=== PATIENT | male | born 1950 | race Caucasian/White ===

== ENCOUNTER 2017-01-06 06:47 | Day surgery (SDC) | payer MEDICARE ==
[~2017-01-06] VITALS: Ht 172.7 cm; Wt 83.6 kg
[2017-01-06] MEDS ORDERED: SODIUM CHLORIDE 0.9% 1000 ML IV SCH (07:00)
[2017-01-06] MEDS ORDERED: TAMS0.4C4 PO (07:07)
[2017-01-06] MEDS ORDERED: CALC500T37 PO (07:07)
[2017-01-06] MEDS ORDERED: ASPI81CH37 CHEW (07:07)
[2017-01-06] MEDS ORDERED: FISHCAP4 PO (07:07)
[2017-01-06] MEDS ORDERED: DENO120P SQ (07:07)
[2017-01-06] MEDS ORDERED: VITA100036 PO (07:07)
[2017-01-06] MEDS ORDERED: LEUP1INJ8 SQ (07:07)
[2017-01-06] MEDS ORDERED: ATOR40TA16 PO (07:07)
[2017-01-06] MEDS ORDERED: MULT1TAB PO (07:07)
[2017-01-06] MEDS ORDERED: AMLO10TA2 PO (07:07)
[2017-01-06] MEDS ORDERED: VANCOMYCIN 1000 MG/NS 250 ML - implanted port/tunneled catheter IV SCH ×2 (07:30)
[2017-01-06] MEDS ORDERED: ceFAZolin 2 GM PREMIX 50 ML - implanted port/tunneled catheter insertion IV SCH (07:30)
[2017-01-06 07:50] LABS: APTT (PATIENT) 26.6 SEC (24.3-30.1); INTERNATIONAL NORMALIZED RATIO 0.9 RATIO; PROTHROMBIN TIME - PATIENT 10.1 SEC (9.8-11.6)
[2017-01-06] MEDS ORDERED: fentaNYL CITRATE 250 MCG/5 ML AMP ONE (08:03)
[2017-01-06] MEDS ORDERED: MIDAZOLAM HCL 5 MG/5 ML VIAL ONE (08:03)
[2017-01-06] MEDS ORDERED: LIDOCAINE 1%/EPINEPHrine 1:100,000 SOLN 20 ML VIAL ONE (08:22)
--- NOTE | 2017-01-06 09:19 | PD.RAD ---
Post Procedure Progress Note Pre Procedure Diagnosis: (1) Prostate cancer Post Procedure Diagnosis: (1) Prostate cancer Procedure Date: Jan 06, 2017 Supervising Radiologist: Cooper Ruiz JR Proceduralist/Assist: Danay Boykin, RT(R), Amara Coates RT(R)() Anesthesia: Conscious Sedation Plan of Activity Patient to Unit: ROPU Patient Condition: Good See PACS Report for procedural detail/treatment Central Venous Access Device Procedure 1 Right Internal Jugular Hemodialysis Catheter Tunneled Placement dual lumen [place]: 15 Findings: Permcath in good position. OK to use. Plan Remove sutures in 2-3 weeks. Jr. Joseph,Cooper Finch MD Jan 06, 2017 09:19
[2017-01-06 09:30] VITALS: BP 104/72; PULSE 56; RESP 16; O2SAT 93
[2017-01-06] MEDS ORDERED: HEPARIN SODIUM - IV 2,000 UNITS/2 ML VIAL IV FLUSH PRN (09:30)
[2017-01-06] MEDS ORDERED: SODIUM CHLORIDE 0.9% FLUSH 10 ML FLUSH IVF PRN (09:30)
[2017-01-06 09:47] VITALS: BP 103/67; PULSE 63; RESP 16; TEMP 98.1; O2SAT 98
--- NOTE | 2017-01-06 09:55 | RADRPT ---
EXAM DATE/TIME: 01/06/2017 08:28 This report includes an Addendum and supersedes previous reports for this exam. [facility] COMPARISON: No previous studies available for comparison. 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 Vancomycin within 2 hours of procedure, Ancef (or alternative) within 1 hour of procedure. DEVICE: 1. 15 [place] single lumen 19 cm [place] II Plus catheter PROCEDURE : 1. Ultrasound-guided venipuncture. 2. PermaCath placement. 3. Conscious sedation with continuous EKG and oximetry monitoring. The risks, benefits and alternatives to the procedure were explained and verbal and written consent w as obtained. The site was prepped in sterile fashion. Full sterile technique was used, including ca p, mask, sterile gloves and gown and a large sterile sheet. Hand hygiene and 2% chlorhexidine and/or betadine/alcohol prep was utilized per protocol for cutaneous antisepsis. The skin and subcutaneous tissues were infiltrated with local anesthetic solution. With ultrasound and fluoroscopic guidance a dermatotomy was created over the prescribed vein. A micr opuncture set was used to access the targeted vein and serial dilatation was performed to accept the prescribed length catheter. A subcutaneous tunnel was created in a retrograde fashion the catheter w as pulled through the tunnel. The catheter was flushed and assembled and locked with heparin. The c atheter was sutured in place. Conscious sedation was performed with the prescribed dosages and duration as above in the presence of an independent trained radiology nurse to assist in the monitoring of the patient. EKG and oximetry remained stable throughout the procedure. The patient tolerated the procedure well and there were n o complications. The patient was sent to post anesthesia recovery in stable condition. CONCLUSION: Uncomplicated PermaCath placement as above. Cooper Ruiz Jr., MD on January 06, 2017 at 9:53 Board Certified Radiologist. This report was verified electronically. ADDENDUM: There is a correction under the device listed. The device utilized is a 15 [place] 19 cm dual lumen [place] II plus catheter. Cooper Ruiz Jr., MD on January 06, 2017 at 15:05 Board Certified Radiologist. This report was verified electronically.
[2017-01-06 10:30] VITALS: BP 102/66; PULSE 55; RESP 16; O2SAT 94
[2017-01-06 11:08] VITALS: BP 104/64; PULSE 54; RESP 16; O2SAT 94
== END 2017-01-06 11:34 | disposition home or self-care (01) ==
LOC: HROP 06:47 → HRIP 06:51 → HROP 11:34
PROVIDERS: ATTEND Urology
DX: C61 Malignant neoplasm of prostate (principal); I10 Essential (primary) hypertension; E78.5 Hyperlipidemia, unspecified; J44.9 Chronic obstructive pulmonary disease, unspecified
CPT/HCPCS: 36558; 76937; 77001; 85610; 85730; 99152; 99153; C1750; C1769; J0690; J1644; J2250; J3010; J3370; J7030; J7050

== ENCOUNTER 2017-01-27 12:51 | Day surgery (SDC) | payer MEDICARE ==
[~2017-01-27 12:51] MED LIST: AMLO10TA2 PO; ASPI81CH37 CHEW; ATOR40TA16 PO; CALC500T37 PO; DENO120P SQ; FISHCAP4 PO; LEUP1INJ8 SQ; MULT1TAB PO; TAMS0.4C4 PO; VITA100036 PO
[2017-01-27 13:12] VITALS: BP 142/82; PULSE 74; RESP 18; TEMP 97.9; O2SAT 98
[2017-01-27] MEDS ORDERED: LIDOCAINE 1%/EPINEPHrine 1:100,000 SOLN 20 ML VIAL ONE (14:34)
[2017-01-27 15:00] VITALS: BP 140/85; PULSE 63; RESP 18; O2SAT 98
--- NOTE | 2017-01-27 16:43 | RADRPT ---
EXAM DATE/TIME: 01/27/2017 00:00 [facility] COMPARISON: No previous studies available for comparison. INDICATIONS : Patient presents with a history of prostate cancer in need of dialysis catheter removal due to plasm apheresis treatment exchange completion. MEDICAL HISTORY : Hx prostate cancer COPD HLD SURGICAL HISTORY : Prostate needle biopsy Colonoscopy Brachytherapy ENCOUNTER: Subsequent ACUITY: 2 weeks PAIN SCORE: 0/10 LOCATION: N/A IMAGE SERIES: 0 TECH NOTE: Dialysis catheter removed without fluoroscopy.ALCIRA PIPER MR#:[id number] Exam Dt/Desc: January 27, 2017CENTRAL VENOUS CATHETER REMOVAL, TUNNELED RIGHT PROCEDURE : 1. PermaCath removal. The risks, benefits and alternatives to the procedure were explained and verbal and written consent w as obtained. The site was prepped in sterile fashion. Full sterile technique was used, including ca p, mask, sterile gloves and gown and a large sterile sheet. Hand hygiene and 2% chlorhexidine and/or betadine/alcohol prep was utilized per protocol for cutaneous antisepsis. The skin and subcutaneous tissues were infiltrated with local anesthetic solution. The tract was anesthetized with 1% Lidocaine using. The Permcath was dissected from the subcutaneous tissues and easily removed in one piece. Manual pressure was applied to the venotomy site until hem ostasis was obtained. Sterile dressing was applied. The patient tolerated the procedure well and there were no complications. CONCLUSION: Uncomplicated Permcath removal. Curtis Morales MD on January 27, 2017 at 16:41 Board Certified Radiologist. This report was verified electronically.
== END 2017-01-27 15:15 | disposition home or self-care (01) ==
LOC: HROP 12:51 → HRIP 12:52 → HROP 15:15
PROVIDERS: ATTEND Urology
DX: Z45.2 Encounter for adjustment and management of vascular access device (principal); J44.9 Chronic obstructive pulmonary disease, unspecified; E78.5 Hyperlipidemia, unspecified; Z85.46 Personal history of malignant neoplasm of prostate; Z79.82 Long term (current) use of aspirin; Z79.899 Other long term (current) drug therapy
CPT/HCPCS: 36589; 77001

== ENCOUNTER 2017-10-26 22:15 | Emergency (ER) | payer MEDICARE ==
[~2017-10-26] VITALS: Ht 172.7 cm; Wt 82.4 kg
[~2017-10-26 22:15] MED LIST changes: -ASPI81CH37 CHEW; +ASPI81CH6 CHEW; +CHOL10008 PO; -VITA100036 PO
[2017-10-26 22:20] VITALS: BP 154/98; PULSE 92; RESP 18; TEMP 99; O2SAT 100
--- NOTE | 2017-10-26 23:19 | RADRPT ---
EXAM DATE/TIME: 10/26/2017 22:39 [facility] COMPARISON: No previous studies available for comparison. INDICATIONS : Dysuria. ORAL CONTRAST: No oral contrast ingested. RADIATION DOSE: 9.63 CTDIvol (mGy) MEDICAL HISTORY : Hypertension. Chronic obstructive pulmonary disease. Carcinoma, prostate.Hiatal hernia, rectal mass SURGICAL HISTORY : Colostomy. ENCOUNTER: Initial ACUITY: 1 day PAIN SCALE: 10/10 LOCATION: abdomen TECHNIQUE: Volumetric scanning of the abdomen and pelvis was performed. Using automated exposure control and ad justment of the mA and/or kV according to patient size, radiation dose was kept as low as reasonably achievable to obtain optimal diagnostic quality images. DICOM format image data is available electro nically for review and comparison. FINDINGS: LOWER LUNGS: The visualized lower lungs are clear. LIVER: Homogeneous density without lesion. There is no dilation of the biliary tree. No calcified gallston es. SPLEEN: Normal size without lesion. PANCREAS: Within normal limits. KIDNEYS: Normal in size and shape. There is no mass, stone, or hydronephrosis on the left. Punctate nonobstru cting calculus upper pole right kidney measures 2 mm. There is mild prominence right collecting syste m. No distal ureteral calculus. ADRENAL GLANDS: Within normal limits. VASCULAR: There is no aortic aneurysm. BOWEL/MESENTERY: Left lower quadrant colostomy with stomal hernia. No signs of strangulation or obstruction. Diverticu losis of the colon. There is no free intraperitoneal air or fluid. ABDOMINAL WALL: Within normal limits. RETROPERITONEUM: Prominent retroperitoneal adenopathy largest distal bifurcation measuring 2.5 x 1.8 cm and the left.. BLADDER: No wall thickening or mass. There is hyperdensity/debris within the bladder posteriorly could be jose tony or other abnormality. REPRODUCTIVE: Within normal limits. INGUINAL: There is no lymphadenopathy or hernia. MUSCULOSKELETAL: Within normal limits for patient age. CONCLUSION: 1. Debris/hyperdensity within the bladder could be hematoma or other abnormality. Urinalysis recommen ded. 2. Mild prominence of the right collecting system but no distal ureteral calculus. 3. Retroperitoneal lymphadenopathy. 4. Diverticulosis of the colon. 5. Left lower quadrant colostomy stomal hernia. Gio Villanueva MD on October 26, 2017 at 23:14 Board Certified Radiologist. This report was verified electronically.
[2017-10-26 23:20] VITALS: BP 143/82; PULSE 70; RESP 18; O2SAT 100
[2017-10-26 23:25] VITALS: RESP 20; O2SAT 100
--- NOTE | 2017-10-26 23:28 | PD ---
HPI Chief Complaint: Bloody urine Time Seen by Provider: 23:21 Travel History International Travel<30 days: No Contact w/Intl Traveler<30days: No Traveled to known affect area: No History of Present Illness HPI Patient comes in complaining of suprapubic pain, sharp, 9 out of 10, relieved slightly by urination. However his urination has decreased tremendously since he started noticing large blood clots through his urine stream. Patient states that he had a recent cystoscopy in which Dr. Colvin discovered a bladder mass which was causing his hematuria. No known drug allergy Past medical history significant for hypertension COPD hiatal hernia and most recently a bladder CA, he is expected to have bladder mass removal on November 16 of this year by Dr. COLVIN [facility] Past Medical History Cancer: Yes (PROSTATE, RECENT BX RECTAL MASS) Cardiovascular Problems: No Diabetes: No Endocrine: No Genitourinary: Yes (DYSURIA) Hepatitis: No Hiatal Hernia: Yes Immune Disorder: No Musculoskeletal: No Neurologic: No Psychiatric: Yes (DEPRESSION) Reproductive: No Respiratory: Yes (COPD) Thyroid Disease: No Past Surgical History Abdominal Surgery: No AICD: No Cardiac Surgery: No Ear Surgery: No Endocrine Surgery: No Eye Surgery: No Genitourinary Surgery: No Gynecologic Surgery: No Joint Replacement: No Oral Surgery: No Pacemaker: No Thoracic Surgery: No Social History Substance Use: No Allergies-Medications (Allergen,Severity, Reaction): Coded Allergies: No Known Allergies (Verified Adverse Reaction, Unknown, 10/27/17) Reported Meds & Prescriptions Reported Meds & Active Scripts Active Reported Xgeva Inj (Denosumab) 120 Mg/1.7 Ml Inj 70 Mg SQ Q28D Eligard Inj Kit (Leuprolide Acetate) 7.5 Mg Kit 7.5 Mg SQ Q30D Centrum Silver Adult 50+ (Multiple Vitamins W/ Minerals) 1 Tab Tab 1 Tab PO DAILY Vitamin D3 (Cholecalciferol) 1,000 Unit Cap 4,000 Units PO DAILY Fish Oil + D3 (Fish Oil-Cholecalciferol) 1,200-1,000 Mg-Unit Cap 1 Cap PO DAILY Calcium Ascorbate 500 Mg Tab 500 Mg PO DAILY Aspirin Low Dose (Aspirin) 81 Mg Chew 81 Mg CHEW DAILY Tamsulosin (Tamsulosin HCl) 0.4 Mg Cap 0.4 Mg PO HS Atorvastatin (Atorvastatin Calcium) 40 Mg Tab 40 Mg PO HS Amlodipine (Amlodipine Besylate) 10 Mg Tab 10 Mg PO DAILY Review of Systems General / Constitutional: No: Fever Eyes: No: Visual changes HENT: No: Headaches Cardiovascular: No: Chest Pain or Discomfort Respiratory: No: Shortness of Breath Gastrointestinal: Positive: Abdominal Pain (Suprapubic pain) Genitourinary: Positive: Hematuria Musculoskeletal: No: Pain Skin: No Rash Neurologic: No: Weakness Psychiatric: No: Depression Endocrine: No: Polydipsia Hematologic/Lymphatic: No: Easy Bruising Physical Exam Narrative GENERAL: SKIN: Warm and dry. HEAD: Atraumatic. Normocephalic. EYES: Pupils equal and round. No scleral icterus. No injection or drainage. ENT: No nasal bleeding or discharge. Mucous membranes pink and moist. NECK: Trachea midline. No JVD. CARDIOVASCULAR: Regular rate and rhythm. RESPIRATORY: No accessory muscle use. Clear to auscultation. Breath sounds equal bilaterally. GASTROINTESTINAL: Abdomen soft, non-tender, nondistended. Suprapubic fullness, noted gross hematuria with a few drops of urine. MUSCULOSKELETAL: Extremities without clubbing, cyanosis, or edema. No obvious deformities. NEUROLOGICAL: Awake and alert. No obvious cranial nerve deficits. Motor grossly within normal limits. Five out of 5 muscle strength in the arms and legs. Normal speech. PSYCHIATRIC: Appropriate mood and affect; insight and judgment normal. Data Data Last Documented VS Vital Signs Date Time Temp Pulse Resp B/P (MAP) Pulse Ox O2 Delivery O2 Flow Rate FiO2 10/27/17 01:20 18 10/26/17 22:20 99.0 92 154/98 (116) 100 Orders Orders Urinalysis - C+S If Indicated (10/26/17 22:20) Ct Abd/Pel W/O Iv Contrast (10/26/17 22:20) Complete Blood Count With Diff (10/26/17 23:22) Comprehensive Metabolic Panel (10/26/17 23:22) Lipase (10/26/17 23:22) Iv Access Insert/Monitor (10/26/17 23:22) Ecg Monitoring (10/26/17 23:22) Oximetry (10/26/17 23:22) Hydromorphone Pf Inj (Dilaudid Pf Inj) (10/26/17 23:30) Ondansetron Inj (Zofran Inj) (10/26/17 23:30) Sodium Chloride 0.9% Flush (Ns Flush) (10/26/17 23:30) Bladder/Catheter Irrigation (10/26/17 23:22) Lidocaine 2% Viscous (Xylocaine 2% Visco (10/27/17 00:30) Urinary Catheter Management GABRIELA.Q8H (10/27/17 01:21) Labs Laboratory Tests Test 10/27/17 00:01 White Blood Count 5.1 TH/MM3 Red Blood Count 3.72 MIL/MM3 Hemoglobin 12.0 GM/DL Hematocrit 35.0 % Mean Corpuscular Volume 94.3 FL Mean Corpuscular Hemoglobin 32.2 PG Mean Corpuscular Hemoglobin Concent 34.1 % Red Cell Distribution Width 13.8 % Platelet Count 248 TH/MM3 Mean Platelet Volume 8.9 FL Neutrophils (%) (Auto) 77.0 % Lymphocytes (%) (Auto) 12.9 % Monocytes (%) (Auto) 8.2 % Eosinophils (%) (Auto) 1.6 % Basophils (%) (Auto) 0.3 % Neutrophils # (Auto) 3.9 TH/MM3 Lymphocytes # (Auto) 0.7 TH/MM3 Monocytes # (Auto) 0.4 TH/MM3 Eosinophils # (Auto) 0.1 TH/MM3 Basophils # (Auto) 0.0 TH/MM3 CBC Comment DIFF FINAL Differential Comment Blood Urea Nitrogen 22 MG/DL Creatinine 1.00 MG/DL Random Glucose 133 MG/DL Total Protein 7.0 GM/DL Albumin 3.7 GM/DL Calcium Level 9.3 MG/DL Alkaline Phosphatase 85 U/L Aspartate Amino Transf (AST/SGOT) 23 U/L Alanine Aminotransferase (ALT/SGPT) 20 U/L Total Bilirubin 0.4 MG/DL Sodium Level 141 MEQ/L Potassium Level 3.4 MEQ/L Chloride Level 108 MEQ/L Carbon Dioxide Level 25.9 MEQ/L Anion Gap 7 MEQ/L Estimat Glomerular Filtration Rate 75 ML/MIN Lipase 73 U/L MDM Medical Decision Making Medical Screen Exam Complete: Yes Emergency Medical Condition: Yes Medical Record Reviewed: Yes Differential Diagnosis Kidney stones versus UTI versus bladder mass versus renal cell carcinoma versus urinary retention secondary to blood clots Narrative Course No evidence of leukocytosis, no anemia, normal platelet count, no left shift Electrolytes are all within normal limits, GFR is decreased at 75, random glucose is 133 however normal LFTs normal bilirubin normal alk phos and normal pancreatic enzymes CT abdomen pelvis read by radiologist showing debris hyperdensity within the bladder which could be hematoma. Mild prominence of the right collecting system but no distal ureteral calculus, retroperitoneal lymphadenopathy, diverticulosis of the colon without diverticulitis.----This CT findings are consistent with the patient's history of a bladder mass especially with those enlarged retroperitoneal lymph nodes. The patient already has a urologist, he is already scheduled to have a procedure to remove that mass, and already has follow-up by Dr. Colvin The patient will have continuous bladder irrigation a few hours and attempt to go to clear. Or as clear as possible. After this is achieved the patient will have HIS CBI switch to a Wood and DC WITH like bag Diagnosis Primary Impression: Urinary retention secondary to blood clots Additional Impression: Blood clots secondary to bladder mass Referrals: José Colvin MD Please make the urologist aware that you required continuous bladder irrigation in order to get rid of your urinary retention. Additional Instructions: Please make the urologist aware that you required continuous bladder irrigation in order to get rid of your urinary retention. Disposition: 01 DISCHARGE HOME Condition: Stable Dionisio Hook MD October 26, 2017 23:28
[2017-10-26] MEDS ORDERED: ONDANSETRON HCL 4 MG/2 ML VIAL IVP ONE (23:30)
[2017-10-26] MEDS ORDERED: SODIUM CHLORIDE 0.9% FLUSH 10 ML FLUSH IV FLUSH PRN (23:30)
[2017-10-26] MEDS ORDERED: HYDROmorphone HCL PF 2 MG/ML VIAL IVS ONE (23:30)
[2017-10-27 00:18] LABS: AUTOMATED NEUTROPHIL # 3.9 TH/MM3 (1.8-7.7); BASOPHIL % 0.3 % (0.0-2.0); EOSINOPHIL # 0.1 TH/MM3 (0-0.4); EOSINOPHIL % 1.6 % (0.0-4.0); LYMPH % 12.9 % (9.0-44.0); LYMPHOCYTE # 0.7 TH/MM3 (1.0-4.8); MEAN CELL VOLUME 94.3 FL (80.0-100.0); MEAN CORPUSCULAR HEMOGLOBIN 32.2 PG (27.0-34.0); MEAN CORPUSCULAR HGB CONC 34.1 % (32.0-36.0); MEAN PLATELET VOLUME 8.9 FL (7.0-11.0); MONO % 8.2 % (0.0-8.0); MONOCYTE # 0.4 TH/MM3 (0-0.9); PLATELET COUNT 248 TH/MM3 (150-450); RED BLOOD COUNT 3.72 MIL/MM3 (4.50-5.90); RED CELL DISTRIBUTION WIDTH 13.8 % (11.6-17.2); WHITE BLOOD COUNT 5.1 TH/MM3 (4.0-11.0)
[2017-10-27] MEDS ORDERED: LIDOCAINE VISCOUS 2% SOLN 15 ML UDC SWISH-SPIT ONE (00:30)
[2017-10-27 00:31] LABS: CHLORIDE 108 MEQ/L (98-107); SODIUM (NA) 141 MEQ/L (136-145)
[2017-10-27 00:34] LABS: CALCIUM 9.3 MG/DL (8.5-10.1)
[2017-10-27 00:35] LABS: ALBUMIN 3.7 GM/DL (3.4-5.0); BICARBONATE 25.9 MEQ/L (21.0-32.0); BLOOD UREA NITROGEN 22 MG/DL (7-18); GLUCOSE,RANDOM 133 MG/DL (74-106)
[2017-10-27 00:38] LABS: ALT (GPT) 20 U/L (12-78); AST (GOT) 23 U/L (15-37); GLOMERULAR FILTRATION RATE 75 ML/MIN (>89)
[2017-10-27 00:39] LABS: TOTAL BILIRUBIN ADULT 0.4 MG/DL (0.2-1.0)
[2017-10-27 00:41] LABS: ALKALINE PHOSPHATASE 85 U/L (45-117)
[2017-10-27 00:45] VITALS: BP 140/78; PULSE 64; RESP 16; O2SAT 100
[2017-10-27] MEDS ORDERED: FENT75DI T-DERMAL (01:55)
[2017-10-27] MEDS ORDERED: ENZA40CA PO (01:55)
[2017-10-27] MEDS ORDERED: PRED5TAB PO (01:55)
[2017-10-27] MEDS ORDERED: ONDA4TAB15 PO (01:55)
[2017-10-27 01:58] VITALS: BP 137/80; PULSE 61; RESP 18; O2SAT 98
[2017-10-27 02:10] VITALS: BP 133/72; PULSE 62; RESP 18; O2SAT 99
[2017-10-27 02:30] VITALS: BP 147/78; PULSE 67; RESP 18; O2SAT 99
[2017-10-27 02:50] VITALS: BP 142/80; PULSE 67; RESP 18; O2SAT 99
--- NOTE | 2017-10-27 03:27 | PD ---
Physical Exam Date Seen by Provider: October 27, 2017 Time Seen by Provider: 03:15 Narrative Patient initially seen by Dr. Hook, please see his notes for further details. He was planned for bladder irrigation and release with follow-up to his urologist, Dr. Colvin, but patient's nurse was concerned because after 6 L of bladder irrigation, the patient is still having what looks like gross hematuria. Vital signs are stable in the ER. His hemoglobin was 12. And at this point, the case was discussed with urologist covering, Dr. Ledesma, and he states that he would still release the patient with the Wood catheter and have him follow-up in the morning which is a few hours from now with Dr. Headley's. Return for any worsening in pain or new issues as needed. The plan was discussed with the patient he states understanding. Data Data Last Documented VS Vital Signs Date Time Temp Pulse Resp B/P (MAP) Pulse Ox O2 Delivery O2 Flow Rate FiO2 10/27/17 01:58 61 18 137/80 (99) 98 Room Air 10/26/17 22:20 99.0 Orders Orders Urinalysis - C+S If Indicated (10/26/17 22:20) Ct Abd/Pel W/O Iv Contrast (10/26/17 22:20) Complete Blood Count With Diff (10/26/17 23:22) Comprehensive Metabolic Panel (10/26/17 23:22) Lipase (10/26/17 23:22) Iv Access Insert/Monitor (10/26/17 23:22) Ecg Monitoring (10/26/17 23:22) Oximetry (10/26/17 23:22) Hydromorphone Pf Inj (Dilaudid Pf Inj) (10/26/17 23:30) Ondansetron Inj (Zofran Inj) (10/26/17 23:30) Sodium Chloride 0.9% Flush (Ns Flush) (10/26/17 23:30) Bladder/Catheter Irrigation (10/26/17 23:22) Lidocaine 2% Viscous (Xylocaine 2% Visco (10/27/17 00:30) Urinary Catheter Management GABRIELA.Q8H (10/27/17 01:21) Ed Discharge Order (10/27/17 03:25) Labs Laboratory Tests Test 10/27/17 00:01 White Blood Count 5.1 TH/MM3 Red Blood Count 3.72 MIL/MM3 Hemoglobin 12.0 GM/DL Hematocrit 35.0 % Mean Corpuscular Volume 94.3 FL Mean Corpuscular Hemoglobin 32.2 PG Mean Corpuscular Hemoglobin Concent 34.1 % Red Cell Distribution Width 13.8 % Platelet Count 248 TH/MM3 Mean Platelet Volume 8.9 FL Neutrophils (%) (Auto) 77.0 % Lymphocytes (%) (Auto) 12.9 % Monocytes (%) (Auto) 8.2 % Eosinophils (%) (Auto) 1.6 % Basophils (%) (Auto) 0.3 % Neutrophils # (Auto) 3.9 TH/MM3 Lymphocytes # (Auto) 0.7 TH/MM3 Monocytes # (Auto) 0.4 TH/MM3 Eosinophils # (Auto) 0.1 TH/MM3 Basophils # (Auto) 0.0 TH/MM3 CBC Comment DIFF FINAL Differential Comment Blood Urea Nitrogen 22 MG/DL Creatinine 1.00 MG/DL Random Glucose 133 MG/DL Total Protein 7.0 GM/DL Albumin 3.7 GM/DL Calcium Level 9.3 MG/DL Alkaline Phosphatase 85 U/L Aspartate Amino Transf (AST/SGOT) 23 U/L Alanine Aminotransferase (ALT/SGPT) 20 U/L Total Bilirubin 0.4 MG/DL Sodium Level 141 MEQ/L Potassium Level 3.4 MEQ/L Chloride Level 108 MEQ/L Carbon Dioxide Level 25.9 MEQ/L Anion Gap 7 MEQ/L Estimat Glomerular Filtration Rate 75 ML/MIN Lipase 73 U/L MDM Medical Record Reviewed: Yes Supervised Visit with DESIREE: No Diagnosis Primary Impression: Urinary retention secondary to blood clots Additional Impression: Blood clots secondary to bladder mass Referrals: José Colvin MD 1 day Please make the urologist aware that you required continuous bladder irrigation in order to get rid of your urinary retention. Additional Instruction: Please make the urologist aware that you required continuous bladder irrigation in order to get rid of your urinary retention. Disposition: 01 DISCHARGE HOME Condition: Stable SoonMichael lundberg MD October 27, 2017 03:27
[2017-10-27 03:38] VITALS: BP 149/74
[2017-10-27] MEDS ORDERED: HEPARIN SODIUM - IV 10,000 UNITS/10 ML VIAL IV ONE (04:00)
== END 2017-10-27 04:45 | disposition home or self-care (01) ==
LOC: PHED 22:15
DX: R33.9 Retention of urine, unspecified (principal); N32.89 Other specified disorders of bladder; R59.1 Generalized enlarged lymph nodes; K57.90 Diverticulosis of intestine, part unspecified, without perforation or abscess without bleeding; K94.09 Other complications of colostomy; I10 Essential (primary) hypertension; J44.9 Chronic obstructive pulmonary disease, unspecified; F32.9 Major depressive disorder, single episode, unspecified; Z79.82 Long term (current) use of aspirin
CPT/HCPCS: 51702; 74176; 80053; 83690; 85025; 96374; 96375; 99284; J1170; J1644; J2405